=== PATIENT | male | born 1965 | race Caucasian/White ===

== ENCOUNTER 2018-07-05 10:19 | Inpatient (IN) | payer OTHER ==
[2018-07-05 10:35] VITALS: BMI 26.8
--- NOTE | 2018-07-05 12:51 | HP ---
Admission [facility] Chief Complaint: i am here for rehab from alcohol Allergies/Adverse Reactions: Allergies Allergy/AdvReac Type Severity Reaction Status Date / Time No Known Allergies Allergy Verified 07/05/18 10:43 History of Present Illness: this 52 years old male with alcohol dependence,seeking rehab,last treatment 1987 rehab low back pain for 16 years chronic neck pain for 6 years on meds depression nicotine dependence for rehab as protocol Exam Limitations: No Limitations - Ebola screening Have you traveled outside of the country in the last 21 days: No Have you had contact with anyone from an Ebola affected area: No Have you been sick,other than usual withdrawal symptoms: No Do you have a fever: No - Review of Systems Constitutional: No Symptoms Reported EENT: reports: No Symptoms Reported Respiratory: reports: No Symptoms reported Cardiac: reports: No Symptoms Reported GI: reports: No Symptoms Reported : reports: No Symptoms Reported Musculoskeletal: reports: Muscle Pain (low back pain) Integumentary: reports: No Symptoms Reported Neuro: reports: No Symptoms reported Endocrine: reports: No Symptoms Reported Hematology: reports: No Symptoms Reported Psychiatric: reports: No Sypmtoms Reported, Judgement Intact, Mood/Affect Appropiate, Orientated x3, Anxious, Depressed Patient History - Patient Medical History Hx Anemia: No Hx Asthma: No Hx Chronic Obstructive Pulmonary Disease (COPD): Yes (on albuterol inhelar) Hx Cancer: No Hx Cardiac Disorders: No Hx Congestive Heart Failure: No Hx Hypertension: No Hx Hypercholesterolemia: No Hx Pacemaker: No HX Cerebrovascular Accident: No Hx Seizures: No Hx Dementia: No Hx Diabetes: No Hx Gastrointestinal Disorders: No Hx Liver Disease: No Hx Genitourinary Disorders: Yes (bph) Hx Sexually Transmitted Disorders: No Hx Renal Disease (ESRD): No Hx Thyroid Disease: No Hx Human Immunodeficiency Virus (HIV): No (last 2016 negative) Hx Hepatitis C: No Hx Depression: Yes Hx Suicide Attempt: Yes (pill overdose in 09/2017) Hx Bipolar Disorder: No Hx Schizophrenia: No Other Medical History: no suicidal,no homicidal,bph,vertigo - Patient Surgical History Past Surgical History: Yes Hx Neurologic Surgery: No Hx Cataract Extraction: Yes (left eye in 2013) Hx Cardiac Surgery: No Hx Lung Surgery: No Hx Breast Surgery: No Hx Breast Biopsy: No Hx Abdominal Surgery: No Hx Appendectomy: No Hx Cholecystectomy: No Hx Genitourinary Surgery: No Hx Section: No Hx Orthopedic Surgery: No Anesthesia Reaction: No - PPD History Previous Implant?: Yes Documented Results: Negative w/o proof Implanted On Prior R Admission?: No PPD to be Administered?: Yes - Smoking Cessation Smoking history: Current every day smoker Have you smoked in the past 12 months: Yes Aproximately how many cigarettes per day: 20 Hx Chewing Tobacco Use: No Initiated information on smoking cessation: Yes 'Breaking Loose' booklet given: 07/05/18 - Substance & Tx. History Hx Alcohol Use: Yes Hx Substance Use: No Substance Use Type: Alcohol Hx Substance Use Treatment: Yes (rehab in 1985) - Substances Abused Alcohol-beer Route: Oral Frequency: 1-2 times per week Amount used: 4-5 (25 oz.) Age of first use: 16 Date of Last Use: 07/02/18 Family Disease History - Family Disease History Family History: Denies Admission Physical Exam BHS - Vital Signs Vital Signs: Vital Signs - 24 hr 07/05/18 10:30 Temperature 97.1 F L Pulse Rate 75 Respiratory 18 Rate Blood Pressure 114/66 - Physical General Appearance: Yes: Within Normal Limits HEENTM: Yes: Normal ENT Inspection, JAVAN, Pharynx Normal Respiratory: Yes: Lungs Clear, Normal Breath Sounds, No Respiratory Distress Neck: Yes: Within Normal Limits, Other (history of neck pain) Breast: Yes: Within Normal Limits Cardiology: Yes: Within Normal Limits Abdominal: Yes: Within Normal Limits, Normal Bowel Sounds, Non Tender, Flat, Soft Genitourinary: Yes: Within Normal Limits Back: Yes: Within Normal Limits Musculoskeletal: Yes: Within Normal Limits Extremities: Yes: Within Normal Limits Neurological: Yes: food selector II-XII NML intact, Alert, Motor Strength 5/5 Integumentary: Yes: Within Normal Limits Lymphatic: Yes: Within Normal Limits - Diagnostic (1) Alcohol dependence Current Visit: Yes Status: Acute (2) COPD (chronic obstructive pulmonary disease) Current Visit: Yes Status: Acute (3) Nicotine dependence Current Visit: Yes Status: Acute (4) Chronic neck pain Current Visit: Yes Status: Acute (5) Anxiety and depression Current Visit: Yes Status: Acute (6) Insomnia Current Visit: Yes Status: Acute (7) BPH (benign prostatic hyperplasia) Current Visit: Yes Status: Acute (8) Vertigo Current Visit: Yes Status: Acute Cleared for Admission [facility] - Detox or Rehab Claeared for Rehab Admission: Yes [facility] Breath Alcohol Content Breath Alcohol Content: 0 Urine Drug Screen - Results Drug Screen Negative: Yes Inpatient Rehab Admission - Initial Determination Are CD services needed?: Yes Free of communicable disease: Yes Not in need of hospitalization: Yes - Rehab Admission Criteria Previous failed treatment: Yes Poor recovery environment: Yes Comorbidities: Yes Lacks judgement: No
[2018-07-05] MEDS ORDERED: ACETAMINOPHEN 325 MG TABLET (FP) PO PRN (13:09)
[2018-07-05] MEDS ORDERED: MAGNESIUM HYDROX 2400MG/30ML ORAL SUSPENSION 30 ML CUP PO PRN (13:09)
[2018-07-05] MEDS ORDERED: hydrOXYzine PAMOATE 50 MG CAPSULE (FP) PO PRN (13:09)
[2018-07-05] MEDS ORDERED: LOPERAMIDE HCL 2 MG CAPSULE PO PRN (13:09)
[2018-07-05] MEDS ORDERED: MAG HYDROX/AL HYDROX/SIMETH 30 ML UNIT-DOSE CUP PO PRN (13:09)
[2018-07-05] MEDS ORDERED: MAGNESIUM CITRATE 300 ML BOTTLE PO PRN (13:09)
[2018-07-05] MEDS ORDERED: IBUPROFEN 400 MG TABLET (FP) PO PRN (13:09)
[2018-07-05] MEDS ORDERED: P-EPHED 60MG/TRIPROLIDI 2.5MG TABLET PO PRN (13:09)
[2018-07-05 14:34] LABS: HEMATOCRIT 45.3 % (35.4-49); HEMOGLOBIN 14.8 GM/dL (11.7-16.9); MCH 32.1 pg (25.7-33.7); MCHC 32.6 g/dl (32.0-35.9); MEAN CELL VOLUME 98.4 fl (80-96); PLATELET COUNT 242 K/MM3 (134-434); RBC 4.61 M/mm3 (4.00-5.60); RDW 13.1 % (11.9-15.9); WHITE BLOOD COUNT 12.1 K/mm3 (4.0-10.0)
[2018-07-05 14:49] LABS: ALBUMIN 3.4 g/dl (3.4-5.0); ALK PHOS 95 U/L (45-117); ANION GAP 5 MMOL/L (8-16); BILIRUBIN,TOTAL 0.5 mg/dL (0.2-1); BLOOD UREA NITROGEN 13 mg/dL (7-18); CALCIUM 9.2 mg/dL (8.5-10.1); CHLORIDE 101 mmol/L (98-107); CO2 33 mmol/L (21-32); CREATININE 0.9 mg/dL (0.55-1.3); GLUCOSE,RANDOM 140 mg/dL (74-106); POTASSIUM 4.2 mmol/L (3.5-5.1); SGOT/AST 24 U/L (15-37); SGPT/ALT 30 U/L (13-61); SODIUM 139 mmol/L (136-145); TOT PROT 6.9 g/dl (6.4-8.2)
[2018-07-05] MEDS ORDERED: TUBERCULIN PPD 5 TU/0.1ML VIAL ID ONE ×2 (15:34→15:37)
[2018-07-05] MEDS: NICOTINE 21 MG/24 HOURS TOPICAL PATCH TD SCH (15:38)
[2018-07-05 18:10] LABS: URINE APPEARANCE CLEAR; URINE BILIRUBIN NEGATIVE (<2.0 mg/dL); URINE COLOR STRAW; URINE GLUCOSE (UA) NEGATIVE (NEGATIVE); URINE KETONE NEGATIVE (NEGATIVE); URINE NITRITE NEGATIVE (NEGATIVE); URINE PROTEIN NEGATIVE (NEGATIVE); URINE UROBILINOGEN NEGATIVE mg/dL (0.2-1.0)
[2018-07-05] MEDS: GABAPENTIN PO SCH ×2 (18:10→22:12)
[2018-07-05] MEDS: METHOCARBAMOL PO SCH ×3 (18:11→22:12)
[2018-07-05] MEDS: MECLIZINE HCL PO PRN (18:13)
[2018-07-05 18:14] LABS: URINE LEUK ESTERASE 2+ (NEGATIVE)
[2018-07-05 18:40] LABS: YEAST RARE
[2018-07-05] MEDS: ALBUTEROL SO4 8 GM HFA INHALER IH PRN (20:35)
[2018-07-05] MEDS ORDERED: MELATONIN 5 MG TABLETS PO PRN (22:00)
[2018-07-05] MEDS: THIAMINE HCL 100 MG TABLET (FP) PO SCH (22:12)
[2018-07-05] MEDS: MENTHOL/PHENOL 1 EACH UD MM PRN (22:15)
[2018-07-05] MEDS ORDERED: PT OWN MED DRAWER 7, Y5N ONE (22:35)
[2018-07-06] MEDS ORDERED: PT OWN MED DRAWER 7, Y5N ONE ×6 (06:31→21:48)
[2018-07-06] MEDS: GABAPENTIN PO SCH ×3 (06:32→21:48)
[2018-07-06] MEDS: MENTHOL/PHENOL 1 EACH UD MM PRN ×2 (06:32→10:54)
[2018-07-06] MEDS: TAMSULOSIN HCL 0.4 MG PO SCH (07:33)
--- NOTE | 2018-07-06 07:51 | HP ---
Psychiatrist Admission - Data Date of interview: 07/06/18 Admission source: Self-referred Identifying data: This is the first [facility] admission for this 52 years old single male, father of 4 childen, unemployed with no source of income, homeless Medical History: Significant for low back pain, chronic neck pain, BPH, vertigo , fracture left hand and history of surgery cataract left eye in 2013. Smoked cigarettes 1 ppd Psychiatric History: Denies history of previous psychiatric treatment. Physical/Sexual Abuse/Trauma History: Denies history of emotional, physical or sexual abuse as well as DV relationship. No service Additional Comment: Reports history of 3 previous arrests on charges of DWI. Reports having an active court case. Told curriculum writer that he had a court appt for tomorrow but it was rescheduled for August by his cytometry technologist Vital Signs: Vital Signs - 24 hr 07/05/18 07/06/18 07/06/18 10:30 00:30 03:30 Temperature 97.1 F L Pulse Rate 75 Respiratory 18 16 16 Rate Blood Pressure 114/66 07/06/18 07:04 Temperature 98.1 F Pulse Rate 74 Respiratory 18 Rate Blood Pressure 106/67 Allergies/Adverse Reactions: Allergies Allergy/AdvReac Type Severity Reaction Status Date / Time No Known Allergies Allergy Verified 07/05/18 10:43 Date of last physical exam: 07/05/18 Concur with the findings of this exam: Yes - Substance Abuse/Tx History Hx Alcohol Use: Yes Hx Substance Use: No Substance Use Type: Alcohol (Started drinking alcohol at age 16, consumes 4-5x 25oz of beer 1-2 times weekly. Last drank on 07/02/18) Hx Substance Use Treatment: Yes (One inpt rehab admission in 1995) Mental Status Exam - Mental Status Exam Alert and Oriented to: Time, Place, Person Cognitive Function: Fair Patient Appearance: Disheveled Mood: Hopeful, Euthymic Patient Behavior: Cooperative Speech Pattern: Clear Voice Loudness: Normal Thought Process: Intact, Goal Oriented Hallucinations: Denies Suicidal Ideation: Denies Homicidal Ideation: Denies Insight/Judgement: Fair Sleep: Poorly Appetite: Good Muscle strength/Tone: Normal Gait/Station: Normal Psychiatric Findings - Problem List ([place] 1, 2,3) (1) Alcohol dependence Current Visit: Yes Status: Acute (2) Nicotine dependence Current Visit: Yes Status: Chronic (3) Alcohol-induced sleep disorder Current Visit: Yes Status: Acute (4) BPH (benign prostatic hyperplasia) Current Visit: Yes Status: Acute (5) COPD (chronic obstructive pulmonary disease) Current Visit: Yes Status: Chronic (6) Chronic neck pain Current Visit: Yes Status: Chronic (7) Vertigo Current Visit: Yes Status: Chronic - Initial Treatment Plan Initial Treatment Plan: 1) Start Melatonin 5 mg po HS prn for insomnia. 2) Monitor progress
[2018-07-06] MEDS: NICOTINE 21 MG/24 HOURS TOPICAL PATCH TD SCH (09:55)
[2018-07-06] MEDS: PRENATAL VITAMINS W/ FOLIC ACID TABLET (FP) PO SCH (09:55)
[2018-07-06] MEDS: ASPIRIN 81 MG PO SCH (10:00)
[2018-07-06] MEDS: METHOCARBAMOL PO SCH ×4 (10:00→21:49)
[2018-07-06] MEDS: MECLIZINE HCL PO PRN ×2 (10:01→14:28)
--- NOTE | 2018-07-06 11:07 | EKG ---
Test Reason : Blood Pressure : / mmHG Vent. Rate : 069 BPM Atrial Rate : 069 BPM P-R Int : 116 ms QRS Dur : 092 ms QT Int : 380 ms P-R-T Axes : 015 007 012 degrees QTc Int : 407 ms NORMAL SINUS RHYTHM NORMAL ECG NO PREVIOUS ECGS AVAILABLE Confirmed by Salvador Hernandez MD ([id number]) on 07/06/2018 11:07:13 AM Referred By: Confirmed By:Salvador Hernandez MD
[2018-07-06] MEDS: THIAMINE HCL 100 MG TABLET (FP) PO SCH (21:49)
[2018-07-07] MEDS ORDERED: PT OWN MED DRAWER 7, Y5N ONE ×5 (02:25→16:36)
[2018-07-07] MEDS: GABAPENTIN PO SCH ×3 (06:22→21:27)
[2018-07-07] MEDS: guaiFENesin/D-METHORPHAN HB 10 ML UNIT-DOSE CUPS PO PRN (06:46)
[2018-07-07] MEDS: ALBUTEROL SO4 8 GM HFA INHALER IH PRN (06:47)
[2018-07-07] MEDS: TAMSULOSIN HCL 0.4 MG PO SCH (08:50)
[2018-07-07] MEDS: PRENATAL VITAMINS W/ FOLIC ACID TABLET (FP) PO SCH (10:04)
[2018-07-07] MEDS: METHOCARBAMOL PO SCH ×4 (10:04→21:27)
[2018-07-07] MEDS: MECLIZINE HCL PO PRN ×2 (10:05→14:23)
[2018-07-07] MEDS: ASPIRIN 81 MG PO SCH (10:05)
[2018-07-07] MEDS: NICOTINE 21 MG/24 HOURS TOPICAL PATCH TD SCH (10:06)
[2018-07-07] MEDS: MENTHOL/PHENOL 1 EACH UD MM PRN (16:59)
[2018-07-07] MEDS: THIAMINE HCL 100 MG TABLET (FP) PO SCH (21:27)
[2018-07-08] MEDS: GABAPENTIN PO SCH ×3 (06:09→21:20)
[2018-07-08] MEDS: MENTHOL/PHENOL 1 EACH UD MM PRN ×3 (06:12→21:20)
[2018-07-08] MEDS: ALBUTEROL SO4 8 GM HFA INHALER IH PRN (06:12)
[2018-07-08] MEDS: TAMSULOSIN HCL 0.4 MG PO SCH (08:52)
[2018-07-08] MEDS: PRENATAL VITAMINS W/ FOLIC ACID TABLET (FP) PO SCH (09:51)
[2018-07-08] MEDS: ASPIRIN 81 MG PO SCH (09:52)
[2018-07-08] MEDS: METHOCARBAMOL PO SCH ×4 (09:52→21:20)
[2018-07-08] MEDS: MECLIZINE HCL PO PRN (09:52)
[2018-07-08] MEDS: NICOTINE 21 MG/24 HOURS TOPICAL PATCH TD SCH (09:55)
[2018-07-08] MEDS: guaiFENesin/D-METHORPHAN HB 10 ML UNIT-DOSE CUPS PO PRN (11:54)
--- NOTE | 2018-07-08 13:51 | PN ---
[facility] Progress Note Note: PT C/O COUGH, SORETHROAT. REPORTS COUGHING MORE NOW AND SOMETIMES DRY AND UNCONTROLLED. REPORTS CEPASTAT LOZENGES HELPING VERY LITTLE. Vital Signs 07/08/18 06:51 Temperature 98.6 F Pulse Rate 80 Respiratory 18 Rate Blood Pressure 108/67 Laboratory Tests 07/05/18 07/05/18 07/05/18 13:10 13:10 13:10 WBC 12.1 H RBC 4.61 Hgb 14.8 Hct 45.3 MCV 98.4 H MCH 32.1 MCHC 32.6 RDW 13.1 Plt Count 242 MPV 8.0 Sodium 139 Potassium 4.2 Chloride 101 Carbon Dioxide 33 H Anion Gap 5 L BUN 13 Creatinine 0.9 Creat Clearance w eGFR > 60 Random Glucose 140 H Calcium 9.2 Total Bilirubin 0.5 AST 24 ALT 30 Alkaline Phosphatase 95 Total Protein 6.9 Albumin 3.4 Urine Color Urine Appearance Urine pH Ur Specific [place] Urine Protein Urine Glucose (UA) Urine Ketones Urine Blood Urine Nitrite Urine Bilirubin Urine Urobilinogen Ur Leukocyte Esterase Urine WBC (Auto) Urine RBC (Auto) Urine Yeast RPR Titer Nonreactive 07/05/18 15:25 WBC RBC Hgb Hct MCV MCH MCHC RDW Plt Count MPV Sodium Potassium Chloride Carbon Dioxide Anion Gap BUN Creatinine Creat Clearance w eGFR Random Glucose Calcium Total Bilirubin AST ALT Alkaline Phosphatase Total Protein Albumin Urine Color Straw Urine Appearance Clear Urine pH 7.0 Ur Specific [place] 1.006 Urine Protein Negative Urine Glucose (UA) Negative Urine Ketones Negative Urine Blood Negative Urine Nitrite Negative Urine Bilirubin Negative Urine Urobilinogen Negative Ur Leukocyte Esterase 2+ H Urine WBC (Auto) 28 Urine RBC (Auto) <1 Urine Yeast Rare RPR Titer LABS NOTED ABNORMAL UA THROAT EXAM:REDNESS WITH NO SWELLING OR EXUDATE. LUNGS:CLEAR TO A/P DX:URI R/O STREP ABNORMAL UA(HX BPH-ON FLOMAX) PLAN:REPEAT UA THROAT CULTURE TODAY CONTINUE CEPASTAT FOR RELIEF MOTRIN PRN ROBITUSSIN DM PRN WARM TEA TOLERATED
[2018-07-08] MEDS: THIAMINE HCL 100 MG TABLET (FP) PO SCH (21:19)
[2018-07-09] MEDS: GABAPENTIN PO SCH (06:45)
[2018-07-09 07:23] VITALS: BP 112/66; PULSE 67; TEMP 99
[2018-07-09] MEDS: TAMSULOSIN HCL 0.4 MG PO SCH (07:36)
[2018-07-09] MEDS: ASPIRIN 81 MG PO SCH (09:57)
[2018-07-09] MEDS: METHOCARBAMOL PO SCH (09:57)
[2018-07-09] MEDS: NICOTINE 21 MG/24 HOURS TOPICAL PATCH TD SCH (09:58)
[2018-07-09] MEDS: MECLIZINE HCL PO PRN (09:58)
[2018-07-09] MEDS: PRENATAL VITAMINS W/ FOLIC ACID TABLET (FP) PO SCH (09:58)
--- NOTE | 2018-07-09 10:36 | PN ---
[facility] Progress Note Note: PT IS SIGNING OUT AMA TODAY. DECLINED TO CONTINUE WITH REHAB TREATMENT. STATES HE FEELS BETTER AND NO MORE SORE THROAT. ALERT O X 3. Vital Signs - 24 hr 07/09/18 07/09/18 07/09/18 00:30 03:30 07:22 Temperature 99 F Pulse Rate 67 Respiratory 17 16 18 Rate Blood Pressure 112/66 Laboratory Tests 07/05/18 07/05/18 07/05/18 13:10 13:10 13:10 WBC 12.1 H RBC 4.61 Hgb 14.8 Hct 45.3 MCV 98.4 H MCH 32.1 MCHC 32.6 RDW 13.1 Plt Count 242 MPV 8.0 Sodium 139 Potassium 4.2 Chloride 101 Carbon Dioxide 33 H Anion Gap 5 L BUN 13 Creatinine 0.9 Creat Clearance w eGFR > 60 Random Glucose 140 H Calcium 9.2 Total Bilirubin 0.5 AST 24 ALT 30 Alkaline Phosphatase 95 Total Protein 6.9 Albumin 3.4 Urine Color Urine Appearance Urine pH Ur Specific [place] Urine Protein Urine Glucose (UA) Urine Ketones Urine Blood Urine Nitrite Urine Bilirubin Urine Urobilinogen Ur Leukocyte Esterase Urine WBC (Auto) Urine RBC (Auto) Urine Yeast RPR Titer Nonreactive 07/05/18 15:25 WBC RBC Hgb Hct MCV MCH MCHC RDW Plt Count MPV Sodium Potassium Chloride Carbon Dioxide Anion Gap BUN Creatinine Creat Clearance w eGFR Random Glucose Calcium Total Bilirubin AST ALT Alkaline Phosphatase Total Protein Albumin Urine Color Straw Urine Appearance Clear Urine pH 7.0 Ur Specific [place] 1.006 Urine Protein Negative Urine Glucose (UA) Negative Urine Ketones Negative Urine Blood Negative Urine Nitrite Negative Urine Bilirubin Negative Urine Urobilinogen Negative Ur Leukocyte Esterase 2+ H Urine WBC (Auto) 28 Urine RBC (Auto) <1 Urine Yeast Rare RPR Titer PT DID NOT GIVE REPEAT UA SPECIMEN. SAYS HE WILL "SEE HIS DOCTOR ANYWAYS'. COPY OF LAB GIVEN TO PATIENT TO FOLLOW UP WITH AFTER CARE WITH PMD DR. TESFAYE CASTANEDA IN [facility]. THROAT CULTURE RESULT NEGATIVE FOR STREP. Microbiology 07/08/18 12:15 Throat Throat Culture - Final NO BETA HEMOLYTIC STREPTOCOCCI ISOLATED
== END 2018-07-09 10:42 | disposition left against medical advice (07) | DRG 58 ==
LOC: YASAS 10:19 → Y3W 13:16
PROVIDERS: ADMIT Psychiatry & Neurology Psychiatry; ATTEND Psychiatry & Neurology Psychiatry
PROC: HZ42ZZZ Group Counseling for Substance Abuse Treatment, Cognitive-Behavioral (ICD-10-PCS; principal; 2018-07-05)
DX: F10.282 Alcohol dependence with alcohol-induced sleep disorder (principal); F17.210 Nicotine dependence, cigarettes, uncomplicated; F41.8 Other specified anxiety disorders; J06.9 Acute upper respiratory infection, unspecified; N40.0 Benign prostatic hyperplasia without lower urinary tract symptoms; J44.9 Chronic obstructive pulmonary disease, unspecified; G47.00 Insomnia, unspecified; M54.2 Cervicalgia; G89.29 Other chronic pain; R42 Dizziness and giddiness; Z91.5 Personal history of self-harm
CPT/HCPCS: 36415; 80053; 81003; 81015; 85027; 86593; 87070; 93005; 93010